=== PATIENT | male | born 1970 | race Asian ===

== ENCOUNTER 2018-09-21 01:33 | Emergency (ER) | payer OTHER ==
[~2018-09-21] VITALS: Ht 170.2 cm; Wt 68.0 kg
[2018-09-21 01:45] VITALS: BP 111/72
--- NOTE | 2018-09-21 01:45 | NUR ---
ED Nurse Note: Patient presents with ETOH intoxication. Patient able to communicate with ERMD, evidence of emesis.
--- NOTE | 2018-09-21 01:45 | NUR ---
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 Blood and urine collected; sent down to lab.
--- NOTE | 2018-09-21 01:48 | Emergency Room Report ---
History of Present Illness General Chief Complaint: Alcohol Intoxication Source: Patient Present Illness HPI Is a 48-year-old male brought in by EMS with chief complaint of alcohol intoxication. He was at a nearby bar and was drinking heavily. He was throwing up so bystander called 911. Patient denies any other complaint. Has nausea and vomiting. No trauma. Denies any drug use. Allergies: Coded Allergies: SULFA (SULFONAMIDE ANTIBIOTICS) (Verified Allergy, Unknown, 09/21/18) Patient History Past Medical History: see triage record, old chart reviewed Past Surgical History: unable to obtain Pertinent Family History: unable to obtain Social History: Reports: alcohol use Immunizations: other Reviewed Nursing Documentation: PMH: Agreed; PSxH: Agreed Nursing Documentation-PMH Hx Diabetes: Yes Review of Systems Eye: Denies: eye pain, blurred vision ENT: Denies: ear pain, nose congestion, throat swelling Respiratory: Denies: cough, shortness of breath Cardiovascular: Denies: chest pain, palpitations Gastrointestinal: Reports: nausea, vomiting; Denies: abdominal pain, diarrhea Musculoskeletal: Denies: back pain, joint pain Skin: Denies: rash Neurological: Denies: headache, numbness Endocrine: Denies: increased thirst, increased urine Hematologic/Lymphatic: Denies: easy bruising All Other Systems: negative except mentioned in HPI Physical Exam Vital Signs Date Time Temp Pulse Resp B/P (MAP) Pulse Ox O2 Delivery O2 Flow Rate FiO2 09/21/18 01:28 97.5 112 16 111/72 98 vitals unremarkable Sp02 EP Interpretation: reviewed, normal General Appearance: well appearing, no apparent distress, alert, other - Intoxicated Head: normocephalic, atraumatic Eyes: bilateral eye PERRL, bilateral eye EOMI ENT: hearing grossly normal, normal pharynx Neck: full range of motion, supple, no meningismus Respiratory: chest non-tender, lungs clear, normal breath sounds Cardiovascular #1: regular rate, rhythm, no murmur Gastrointestinal: normal bowel sounds, non tender, no mass, no organomegaly, no bruit, non-distended Musculoskeletal: back normal, gait/station normal, normal range of motion Psychiatric: mood/affect normal Skin: warm/dry Medical Decision Making Diagnostic Impression: Primary Impression: Cocaine abuse Additional Impressions: Substance abuse Alcohol abuse ER Course Patient with intoxication. No trauma to warrant x-ray or CT scan. His called [facility]. Said that he has a history of drug abuse and she thinks this is more than just alcohol. Drug resistance is positive for cocaine. We'll observe until clinical sobriety. We'll discharge home afterward. Last Vital Signs Date Time Temp Pulse Resp B/P (MAP) Pulse Ox O2 Delivery O2 Flow Rate FiO2 09/21/18 01:28 97.5 112 16 111/72 98 Status: improved Disposition: HOME, SELF-CARE Condition: Stable Scripts Unable to Obtain Active Prescriptions or Reported Meds Additional Instructions: Follow-up with your doctor in 7 days. Abstain from drugs and alcohol. Return if worse. Stanley Pierre MD Sep 21, 2018 01:48
--- NOTE | 2018-09-21 03:19 | NUR ---
ED Nurse Note: Patient resting comfortably, no s/s of acute distress or discomfort. Patient A&Ox4.
--- NOTE | 2018-09-21 03:54 | NUR ---
ED Nurse Note: Patient cleared for discharge by [facility], patient is A&Ox4, ambulatory with steay gait. No s/s of acute distress. PAtient ID band moved, IV removed. Patient plans to call an uber back to his hotel. [facility]ient departed with all of his belongings.
[2018-09-21 03:57] VITALS: BP 111/72
== END 2018-09-21 03:57 | disposition home or self-care (01) ==
LOC: EDBD 01:33 → EMR 01:55
DX: F10.129 Alcohol abuse with intoxication, unspecified (principal); Z88.2 Allergy status to sulfonamides; E11.9 Type 2 diabetes mellitus without complications
CPT/HCPCS: 36415; 80307; 82962; 96361; 96374; 99284; G0480; J2405; 80329